=== PATIENT | male | born 1960 | race Two or more races ===

== ENCOUNTER 2016-08-07 08:56 | Inpatient (IN) | payer OTHER ==
[2016-08-07 10:09] VITALS: BMI 25.1
--- NOTE | 2016-08-07 11:54 | HP ---
COWS - Scale Resting Pulse: 0= [place] 80 or Below Sweatin= Chills/Flushing Restless Observation: 1= Difficult to Sit Still Pupil Size: 2= Moderately Dilated Bone or Joint Aches: 2= Severe Diffuse Aches Runny Nose/ Eye Tearin= Runny Nose/Eyes GI Upset > 30mins: 2= Nausea/Diarrhea Tremor Observation: 2= Slight Tremor Visible Yawning Observation: 1= 1-2x During Session Anxiety or Irritability: 2=Irritable/Anxious Goose Flesh Skin: 0=Smooth Skin COWS Score: 15 Admission ROS S - HPI Chief Complaint: Withdrawal sx. Allergies/Adverse Reactions: Allergies Allergy/AdvReac Type Severity Reaction Status Date / Time No Known Allergies Allergy Verified 08/07/16 10:29 History of Present Illness: 55 y/o man with a long hx. of heroin dependence is admitted for detox.Pt. has been in previous detox,reports being drug free for a significant length of time. Pt. ambulates with walker. Exam Limitations: No Limitations - Ebola screening Have you traveled outside of the country in the last 21 days: No Have you had contact with anyone from an Ebola affected area: No Have you been sick,other than usual withdrawal symptoms: No Do you have a fever: No - Review of Systems Constitutional: Diaphoresis EENT: reports: Nose Congestion Respiratory: reports: No Symptoms reported Cardiac: reports: No Symptoms Reported GI: reports: Nausea, Abdominal cramping : reports: No Symptoms Reported Musculoskeletal: reports: Back Pain, Joint Pain Integumentary: reports: Sweating Neuro: reports: Tingling Endocrine: reports: No Symptoms Reported Hematology: reports: No Symptoms Reported Psychiatric: reports: No Sypmtoms Reported Other Systems: Reviewed and Negative Patient History - Patient Medical History Hx Anemia: No Hx Asthma: No Hx Chronic Obstructive Pulmonary Disease (COPD): No Hx Cancer: No Hx Cardiac Disorders: No Hx Congestive Heart Failure: No Hx Hypertension: Yes (currently not on treatment) Hx Hypercholesterolemia: No Hx Pacemaker: No HX Cerebrovascular Accident: No Hx Seizures: No Hx Dementia: No Hx Diabetes: Yes (currently not on treatment) Hx Gastrointestinal Disorders: No Hx Liver Disease: No Hx Genitourinary Disorders: No Hx Sexually Transmitted Disorders: No Hx Renal Disease (ESRD): No Hx Thyroid Disease: No Hx Human Immunodeficiency Virus (HIV): Yes (SINCE 2001) Hx Hepatitis C: Yes (TREATED) Hx Depression: No Hx Suicide Attempt: No Hx Bipolar Disorder: No Hx Schizophrenia: No - Patient Surgical History Past Surgical History: Yes Hx Neurologic Surgery: No Hx Cataract Extraction: No Hx Cardiac Surgery: No Hx Lung Surgery: No Hx Breast Surgery: No Hx Breast Biopsy: No Hx Abdominal Surgery: Yes (S/P PEG) Hx Appendectomy: No Hx Cholecystectomy: No Hx Genitourinary Surgery: No Hx Section: No Hx Orthopedic Surgery: No (LT ANKLE FX REPAIR) Other Surgical History: BYPASS FOR GANGRENE OF LT LEG, S/P TRACHEOSTOMY Anesthesia Reaction: No - PPD History Previous Implant?: Yes Documented Results: Negative w/proof Implanted On Prior R Admission?: Yes Date: 09/19/15 Results: 0 mm PPD to be Administered?: No - Smoking Cessation Smoking history: Current every day smoker Have you smoked in the past 12 months: Yes Aproximately how many cigarettes per day: 10 Cigars Per Day: 0 Hx Chewing Tobacco Use: No Initiated information on smoking cessation: Yes 'Breaking Loose' booklet given: 08/07/16 - Substance & Tx. History Hx Alcohol Use: No Hx Substance Use: Yes Substance Use Type: Heroin Hx Substance Use Treatment: Yes (Detox) - Substances Abused Heroin Route: Inhalation Frequency: Daily Amount used: 4 bags Age of first use: 26 Date of Last Use: 08/06/16 Family Disease History - Family Disease History Family Disease History: Diabetes: Father, Mother (UTERINE()), Sister, Son, CA: Mother Admission Physical Exam S - Vital Signs Vital Signs: Vital Signs - 24 hr 08/07/16 10:06 Temperature 98.6 F Pulse Rate 80 Respiratory 18 Rate Blood Pressure 118/70 - Physical General Appearance: Yes: Irritable, Sweating, Anxious HEENTM: Yes: Nasal Congestion, Rhinorrhea Respiratory: Yes: Chest Non-Tender, Lungs Clear, Normal Breath Sounds Neck: Yes: Supple Breast: Yes: Breast Exam Deferred Cardiology: Yes: Regular Rhythm, Regular Rate, S1, S2 Abdominal: Yes: Normal Bowel Sounds, Non Tender, Soft Genitourinary: Yes: Within Normal Limits Back: Yes: Within Normal Limits Musculoskeletal: Yes: Other (limited ROM left hip) Extremities: Yes: Other (clubbing of the fingers) Neurological: Yes: Fully Oriented, Alert Integumentary: Yes: Diaphoresis Lymphatic: Yes: Within Normal Limits - Diagnostic (1) Opioid dependence with withdrawal Current Visit: Yes Status: Acute (2) Human immunodeficiency virus infection Current Visit: Yes Status: Chronic (3) H/O fracture of left hip Current Visit: Yes Status: Chronic BHS Breath Alcohol Content Breath Alcohol Content: 0 Urine Drug Screen - Results Drug Screen Negative: No Urine Drug Screen Results: OPI-Opiates, OXY-Oxycodone
[2016-08-07] MEDS ORDERED: guaiFENesin/D-METHORPHAN HB 10 ML UNIT-DOSE CUPS PO PRN (12:04)
[2016-08-07] MEDS ORDERED: NICOTINE POLACRILEX 2 MG GUM BUC PRN (12:04)
[2016-08-07] MEDS ORDERED: P-EPHED 60MG/TRIPROLIDI 2.5MG TABLET PO PRN (12:04)
[2016-08-07] MEDS ORDERED: ACETAMINOPHEN 325 MG TABLET (FP) PO PRN (12:04)
[2016-08-07] MEDS ORDERED: MAG HYDROX/AL HYDROX/SIMETH 30 ML UNIT-DOSE CUP PO PRN (12:04)
[2016-08-07] MEDS ORDERED: hydrOXYzine PAMOATE 50 MG CAPSULE (FP) PO PRN (12:04)
[2016-08-07] MEDS ORDERED: MAGNESIUM HYDROX 2400MG/30ML ORAL SUSPENSION 30 ML CUP PO PRN (12:04)
[2016-08-07] MEDS ORDERED: MENTHOL/PHENOL 1 EACH UD MM PRN (12:04)
[2016-08-07] MEDS ORDERED: IBUPROFEN 400 MG TABLET (FP) PO PRN (12:04)
[2016-08-07] MEDS ORDERED: MAGNESIUM CITRATE 300 ML BOTTLE PO PRN (12:04)
[2016-08-07] MEDS ORDERED: METHADONE HCL 10 MG TABLET (FOR DETOX USE ONLY) PO ONE ×2 (12:19→23:00)
[2016-08-07] MEDS: diazePAM 5 MG TABLET PO PRN ×2 (12:32→22:29)
[2016-08-07] MEDS: NICOTINE 21 MG/24 HOURS TOPICAL PATCH TD SCH (12:33)
[2016-08-07 16:58] LABS: URINE APPEARANCE CLEAR; URINE BILIRUBIN NEGATIVE (NEGATIVE); URINE BLOOD NEGATIVE (NEGATIVE); URINE COLOR LTYELLOW; URINE GLUCOSE (UA) NEGATIVE (NEGATIVE); URINE KETONE NEGATIVE (NEGATIVE); URINE LEUK ESTERASE NEGATIVE (NEGATIVE); URINE NITRITE NEGATIVE (NEGATIVE); URINE UROBILINOGEN NEGATIVE E.U./dl (0.2-1.0)
[2016-08-07 17:33] LABS: URINE PROTEIN 1+ (NEGATIVE)
[2016-08-07 17:43] LABS: URINE MUCUS RARE; URINE RBC <1 /hpf (0-3); URINE WBC 1 /hpf (3-5)
[2016-08-07] MEDS: THIAMINE HCL 100 MG TABLET (FP) PO SCH (22:29)
[2016-08-08] MEDS: diazePAM 5 MG TABLET PO PRN (06:00)
[2016-08-08] MEDS ORDERED: EFAVIRENZ 600 MG TABLET PO SCH (10:00)
[2016-08-08] MEDS ORDERED: METHADONE HCL 10 MG TABLET (FOR DETOX USE ONLY) PO ONE (10:00)
[2016-08-08] MEDS ORDERED: EMTRICITABINE 200MG/TENOFOVIR 300MG PO SCH (10:00)
[2016-08-08] MEDS: NICOTINE 21 MG/24 HOURS TOPICAL PATCH TD SCH (10:27)
[2016-08-08] MEDS: PRENATAL VITAMINS W/ FOLIC ACID TABLET (FP) PO SCH (10:27)
[2016-08-08 10:57] LABS: ALBUMIN 3.7 g/dl (3.4-5.0); BILIRUBIN,TOTAL 0.4 mg/dL (0.2-1.0); CALCIUM 9.1 mg/dL (8.5-10.1); COCKROFT - GAULT 65.36; CREATININE 1.4 mg/dL (0.7-1.3)
[2016-08-08 11:03] LABS: MCH 30.9 pg (25.7-33.7); MCHC 32.8 g/dl (32.0-35.9); MEAN CELL VOLUME 94.4 fl (80-96); PLATELET COUNT 146 K/MM3 (134-434); RDW 16.3 % (11.9-15.9); WHITE BLOOD COUNT 7.3 K/mm3 (4.0-10.0)
--- NOTE | 2016-08-08 12:20 | PN ---
[facility] CIWA - CIWA Score Nausea/Vomitin-No Nausea/No Vomiting Muscle Tremors: 4-Moderate,w/Arms Extend Anxiety: 5 Agitation: 4-Moderately Restless Paroxysmal Sweats: 1-Minimal Palms Moist Orientation: 0-Oriented Tacttile Disturbances: 3-Moderate Itch/Numb/Burn Auditory Disturbances: 0-None Visual Disturbances: 0-None Headache: 0-None Present CIWA-Ar Total Score: 17 S Progress Note (SOAP) Subjective: ANXIETY,TREMORS,AGITATIONS AND ARGUMENTATIVE/ANGRY OUTBURSTS TOWARDS STAFF. Objective: 08/08/16 12:18 Vital Signs Temperature 97.2 F L 08/08/16 10:23 Pulse Rate 87 08/08/16 10:23 Respiratory Rate 20 08/08/16 10:23 Blood Pressure 114/81 08/08/16 10:23 O2 Sat by Pulse Oximetry (%) Laboratory Last Values WBC 7.3 K/mm3 (4.0-10.0) 08/08/16 06:00 RBC 4.30 M/mm3 (4.00-5.60) 08/08/16 06:00 Hgb 13.3 GM/dL (11.7-16.9) 08/08/16 06:00 Hct 40.5 % (35.4-49) 08/08/16 06:00 MCV 94.4 fl (80-96) 08/08/16 06:00 MCHC 32.8 g/dl (32.0-35.9) 08/08/16 06:00 RDW 16.3 % (11.9-15.9) H D 08/08/16 06:00 Plt Count 146 K/MM3 (134-434) D 08/08/16 06:00 MPV 10.0 fl (7.5-11.1) 08/08/16 06:00 Sodium 139 mmol/L (136-145) 08/08/16 06:00 Potassium 4.2 mmol/L (3.5-5.1) 08/08/16 06:00 Chloride 105 mmol/L (98-107) 08/08/16 06:00 Carbon Dioxide 23 mmol/L (21-32) D 08/08/16 06:00 Anion Gap 11 (8-16) 08/08/16 06:00 BUN 34 mg/dL (7-18) H D 08/08/16 06:00 Creatinine 1.4 mg/dL (0.7-1.3) H D 08/08/16 06:00 Creat Clearance w eGFR 52.24 (>60) 08/08/16 06:00 POC Glucometer 113 UNITS (()) 08/07/16 10:57 Random Glucose 144 mg/dL (74-106) H D 08/08/16 06:00 Calcium 9.1 mg/dL (8.5-10.1) 08/08/16 06:00 Total Bilirubin 0.4 mg/dL (0.2-1.0) 08/08/16 06:00 AST 49 U/L (15-37) H D 08/08/16 06:00 ALT 33 U/L (12-78) D 08/08/16 06:00 Alkaline Phosphatase 281 U/L (45-117) H 08/08/16 06:00 Total Protein 9.0 g/dl (6.4-8.2) H 08/08/16 06:00 Albumin 3.7 g/dl (3.4-5.0) 08/08/16 06:00 Urine Color Ltyellow 08/07/16 13:00 Urine Appearance Clear 08/07/16 13:00 Urine pH 6.0 (5.0-8.0) 08/07/16 13:00 Ur Specific [place] 1.014 (1.001-1.035) 08/07/16 13:00 Urine Protein 1+ (NEGATIVE) H 08/07/16 13:00 Urine Glucose (UA) Negative (NEGATIVE) 08/07/16 13:00 Urine Ketones Negative (NEGATIVE) 08/07/16 13:00 Urine Blood Negative (NEGATIVE) 08/07/16 13:00 Urine Nitrite Negative (NEGATIVE) 08/07/16 13:00 Urine Bilirubin Negative (NEGATIVE) 08/07/16 13:00 Urine Urobilinogen Negative E.U./dl (0.2-1.0) 08/07/16 13:00 Ur Leukocyte Esterase Negative (NEGATIVE) 08/07/16 13:00 Urine RBC <1 /hpf (0-3) 08/07/16 13:00 Urine WBC 1 /hpf (3-5) 08/07/16 13:00 Ur Epithelial Cells Rare /hpf (FEW) 08/07/16 13:00 Urine Mucus Rare 08/07/16 13:00 Assessment: 08/08/16 12:18 WITHDRAWAL SX Plan: CONTINUE DETOX REDIRECTIONS TO APPROPRIATE COMMUNICATION OF NEEDS.
--- NOTE | 2016-08-08 14:30 | EKG ---
Test Reason : Blood Pressure : / mmHG Vent. Rate : 077 BPM Atrial Rate : 077 BPM P-R Int : 160 ms QRS Dur : 104 ms QT Int : 392 ms P-R-T Axes : 067 102 000 degrees QTc Int : 443 ms NORMAL SINUS RHYTHM RIGHTWARD AXIS POSSIBLE INFERIOR INFARCT , AGE UNDETERMINED ABNORMAL ECG NO PREVIOUS ECGS AVAILABLE Confirmed by JOSE AGGARWAL, HANNAH ([id number]) on 08/08/2016 2:29:57 PM Referred By: Mukesh Cole Confirmed By:HANNAH GARCIA MD
[2016-08-08] MEDS: THIAMINE HCL 100 MG TABLET (FP) PO SCH (22:38)
[2016-08-08] MEDS: diphenhydrAMINE HCL 50 MG CAPSULE PO PRN (22:38)
[2016-08-08] MEDS ORDERED: EMTRICITABINE 200MG/TENOFOVIR 300MG PO ONE (23:43)
[2016-08-08] MEDS ORDERED: EFAVIRENZ 600 MG TABLET PO ONE (23:44)
[2016-08-09] MEDS: diazePAM 5 MG TABLET PO PRN (06:14)
[2016-08-09] MEDS ORDERED: METHADONE HCL 5 MG TABLET (FOR DETOX USE ONLY) PO ONE (10:00)
[2016-08-09] MEDS: PRENATAL VITAMINS W/ FOLIC ACID TABLET (FP) PO SCH (10:50)
[2016-08-09] MEDS: NICOTINE 21 MG/24 HOURS TOPICAL PATCH TD SCH (10:51)
--- NOTE | 2016-08-09 12:18 | PN ---
BHS COWS - Scale Resting Pulse: 1= [place] 81-100 Sweatin=Flushed/Facial Moisture Restless Observation: 1= Difficult to Sit Still Pupil Size: 0= Normal to Room Light Bone or Joint Aches: 2= Severe Diffuse Aches Runny Nose/ Eye Tearin= Runny Nose/Eyes GI Upset > 30mins: 2= Nausea/Diarrhea Tremor Observation of Outstretched Hands: 2= Slight Tremor Visible Yawning Observation: 1= 1-2x During Session Anxiety or Irritability: 2=Irritable/Anxious Goose Flesh Skin: 0=Smooth Skin COWS Score: 15 BHS Progress Note (SOAP) Subjective: Sweating,anxiety,tremors,interrupted sleep,restless,muscle aches Objective: 08/09/16 12:17 Vital Signs - 8 hr 08/09/16 08/09/16 06:43 10:20 Temperature 95.8 F L 96.4 F L Pulse Rate 76 88 Respiratory 20 18 Rate Blood Pressure 147/86 132/86 Laboratory Tests 08/07/16 08/07/16 08/08/16 10:57 13:00 06:00 WBC 7.3 RBC 4.30 Hgb 13.3 Hct 40.5 MCV 94.4 MCHC 32.8 RDW 16.3 H D Plt Count 146 D MPV 10.0 Sodium Potassium Chloride Carbon Dioxide Anion Gap BUN Creatinine Creat Clearance w eGFR POC Glucometer 113 Random Glucose Calcium Total Bilirubin AST ALT Alkaline Phosphatase Total Protein Albumin Urine Color Ltyellow Urine Appearance Clear Urine pH 6.0 Ur Specific [place] 1.014 Urine Protein 1+ H Urine Glucose (UA) Negative Urine Ketones Negative Urine Blood Negative Urine Nitrite Negative Urine Bilirubin Negative Urine Urobilinogen Negative Ur Leukocyte Esterase Negative Urine RBC <1 Urine WBC 1 Ur Epithelial Cells Rare Urine Mucus Rare RPR Titer 08/08/16 08/08/16 06:00 06:00 WBC RBC Hgb Hct MCV MCHC RDW Plt Count MPV Sodium 139 Potassium 4.2 Chloride 105 Carbon Dioxide 23 D Anion Gap 11 BUN 34 H D Creatinine 1.4 H D Creat Clearance w eGFR 52.24 POC Glucometer Random Glucose 144 H D Calcium 9.1 Total Bilirubin 0.4 AST 49 H D ALT 33 D Alkaline Phosphatase 281 H Total Protein 9.0 H Albumin 3.7 Urine Color Urine Appearance Urine pH Ur Specific [place] Urine Protein Urine Glucose (UA) Urine Ketones Urine Blood Urine Nitrite Urine Bilirubin Urine Urobilinogen Ur Leukocyte Esterase Urine RBC Urine WBC Ur Epithelial Cells Urine Mucus RPR Titer Nonreactive labs noted Assessment: 08/09/16 12:18 Withdrawal sx. Plan: Continue detox
[2016-08-09] MEDS ORDERED: EFAVIRENZ 600 MG TABLET PO SCH ×2 (21:30→22:00)
[2016-08-09] MEDS ORDERED: ONDANSETRON *ODT* 4 MG TABLET SL ONE (21:32)
[2016-08-09] MEDS ORDERED: EMTRICITABINE 200MG/TENOFOVIR 300MG PO SCH (22:00)
[2016-08-09] MEDS: THIAMINE HCL 100 MG TABLET (FP) PO SCH (22:42)
[2016-08-09] MEDS: diphenhydrAMINE HCL 50 MG CAPSULE PO PRN (22:43)
[2016-08-09] MEDS: LOPERAMIDE HCL 2 MG CAPSULE PO PRN (22:43)
[2016-08-09] MEDS ORDERED: EMTRICITABINE 200MG/TENOFOVIR 300MG PO ONE (23:43)
[2016-08-09] MEDS ORDERED: EFAVIRENZ 600 MG TABLET PO ONE (23:44)
[2016-08-10] MEDS: diazePAM 5 MG TABLET PO PRN (06:09)
[2016-08-10] MEDS: LOPERAMIDE HCL 2 MG CAPSULE PO PRN (06:21)
[2016-08-10] MEDS ORDERED: METHADONE HCL 5 MG TABLET (FOR DETOX USE ONLY) PO ONE (10:00)
[2016-08-10 10:08] VITALS: BP 100/75; PULSE 98; TEMP 95.3
[2016-08-10] MEDS: NICOTINE 21 MG/24 HOURS TOPICAL PATCH TD SCH (10:37)
[2016-08-10] MEDS: PRENATAL VITAMINS W/ FOLIC ACID TABLET (FP) PO SCH (10:37)
--- NOTE | 2016-08-10 11:34 | PN ---
S Progress Note (SOAP) Subjective: ANXIETY, NAUSEA/VOMITING/DIARRHEA. Objective: 08/10/16 11:34 Vital Signs Temperature 95.3 F L 08/10/16 10:07 Pulse Rate 98 H 08/10/16 10:07 Respiratory Rate 20 08/10/16 10:07 Blood Pressure 100/75 08/10/16 10:07 O2 Sat by Pulse Oximetry (%) Assessment: 08/10/16 11:34 WITHDRAWAL SX Plan: CONTINUE DETOX.
--- NOTE | 2016-08-10 12:25 | DS ---
[facility] Detox Discharge Summary Admission Date: 08/07/16 Discharge Date: 08/10/16 - History Present History: Opioid Dependence Additional Comments: PT DECLINED TO COMPLETE DETOX. ALERT O X 3. Pertinent Past History: HTN DM HEP HIV+ - Physical Exam Results Vital Signs: Vital Signs Temperature 95.3 F L 08/10/16 10:07 Pulse Rate 98 H 08/10/16 10:07 Respiratory Rate 20 08/10/16 10:07 Blood Pressure 100/75 08/10/16 10:07 O2 Sat by Pulse Oximetry (%) Pertinent Admission Physical Exam Findings: WITHDRAWAL SX - Treatment Hospital Course: Discharged Condition Good - Medication Discharge Medications: Ambulatory Orders Efavirenz/Emtricitab/Tenofovir [Atripla -] 1 tab PO DAILY 09/30/14 - Diagnosis (1) s/p surgery for fx left ankle with bone graft and skin graft Status: Resolved (2) Hep C w/o coma, chronic Status: Chronic (3) Human immunodeficiency virus infection Status: Chronic (4) hypertension Status: Chronic (5) Diet-controlled type 2 diabetes mellitus Status: Chronic - AMA Did Patient Leave Against Medical Advice: Yes (AMA)
[2016-08-11] MEDS ORDERED: METHADONE HCL 10 MG TABLET (FOR DETOX USE ONLY) PO ONE (10:00)
[2016-08-12] MEDS ORDERED: METHADONE HCL 5 MG TABLET (FOR DETOX USE ONLY) PO ONE (06:00)
== END 2016-08-10 12:11 | disposition left against medical advice (07) | DRG 894 ==
LOC: YASAS 08:56 → Y3N 11:15
PROVIDERS: ADMIT Internal Medicine; ATTEND Internal Medicine
PROC: HZ2ZZZZ Detoxification Services for Substance Abuse Treatment (ICD-10-PCS; principal; 2016-08-10)
DX: F11.23 Opioid dependence with withdrawal (principal); F17.210 Nicotine dependence, cigarettes, uncomplicated; Z21 Asymptomatic human immunodeficiency virus [HIV] infection status; E11.9 Type 2 diabetes mellitus without complications; I10 Essential (primary) hypertension; Z87.81 Personal history of (healed) traumatic fracture
CPT/HCPCS: 36415; 80053; 81003; 81015; 85027; 86593; 93005; 93010

== ENCOUNTER 2016-10-03 10:50 | Inpatient (IN) | payer OTHER ==
[2016-10-03 11:56] VITALS: BMI 25.8
--- NOTE | 2016-10-03 14:11 | HP ---
COWS - Scale Resting Pulse: 0= [place] 80 or Below Sweatin=Flushed/Facial Moisture Restless Observation: 3= Extraneous Movement Pupil Size: 2= Moderately Dilated Bone or Joint Aches: 2= Severe Diffuse Aches Runny Nose/ Eye Tearin= Runny Nose/Eyes GI Upset > 30mins: 3= Vomiting/Diarrhea Tremor Observation: 2= Slight Tremor Visible Yawning Observation: 2= >3x During Session Anxiety or Irritability: 2=Irritable/Anxious Goose Flesh Skin: 0=Smooth Skin COWS Score: 20 Admission ROS BHS - HPI Chief Complaint: i need help to stop using heroin Allergies/Adverse Reactions: Allergies Allergy/AdvReac Type Severity Reaction Status Date / Time No Known Allergies Allergy Verified 10/03/16 12:23 History of Present Illness: this 55 years old male with heroin dependence,seeking help for detox,last detox [facility] 08/07/16 to 08/10/16 not completed several admissions in he past but relapsed old fx of left hip ambulation with walker hiv ,hepatitis c treated insomnia longest period of sobriety 8 years Exam Limitations: No Limitations - Ebola screening Have you traveled outside of the country in the last 21 days: No Have you had contact with anyone from an Ebola affected area: No Have you been sick,other than usual withdrawal symptoms: No - Review of Systems Constitutional: Chills, Loss of Appetite, Malaise, Night Sweats, Changes in sleep, Weakness, Unintentional Wgt. Loss EENT: reports: Tearing, Nose Congestion Respiratory: reports: No Symptoms reported Cardiac: reports: Palpitations GI: reports: Diarrhea, Nausea, Vomiting, Abdominal cramping : reports: No Symptoms Reported Musculoskeletal: reports: Back Pain, Muscle Pain Integumentary: reports: Dryness Neuro: reports: Headache, Tremors Endocrine: reports: No Symptoms Reported Hematology: reports: No Symptoms Reported, Other (hiv) Psychiatric: reports: Depressed (insomnia) Patient History - Patient Medical History Hx Anemia: No Hx Asthma: No Hx Chronic Obstructive Pulmonary Disease (COPD): No Hx Cancer: No Hx Cardiac Disorders: No Hx Congestive Heart Failure: No Hx Hypertension: Yes (not on meds.) Hx Hypercholesterolemia: No Hx Pacemaker: No HX Cerebrovascular Accident: No Hx Seizures: No Hx Dementia: No Hx Diabetes: Yes (Pt lost weight and no meds for last 3 yrs. no med) Hx Gastrointestinal Disorders: No Hx Liver Disease: No Hx Genitourinary Disorders: No Hx Sexually Transmitted Disorders: No Hx Renal Disease (ESRD): No Hx Thyroid Disease: No Hx Human Immunodeficiency Virus (HIV): Yes (SINCE 2001) Hx Hepatitis C: Yes (TREATED) Hx Depression: No Hx Suicide Attempt: No Hx Bipolar Disorder: No Hx Schizophrenia: No Other Medical History: no suicidl,no homicidal - Patient Surgical History Past Surgical History: Yes Hx Neurologic Surgery: No Hx Cataract Extraction: No Hx Cardiac Surgery: No Hx Lung Surgery: No Hx Breast Surgery: No Hx Breast Biopsy: No Hx Abdominal Surgery: Yes (S/P PEG) Hx Appendectomy: No Hx Cholecystectomy: No Hx Genitourinary Surgery: No Hx Section: No Hx Orthopedic Surgery: No (LT ANKLE FX REPAIR) Other Surgical History: BYPASS FOR GANGRENE OF LT LEG, S/P TRACHEOSTOMY Anesthesia Reaction: No - PPD History Previous Implant?: Yes Documented Results: Negative w/o proof Implanted On Prior [facility] Admission?: Yes Date: 09/19/15 Results: 0 mm PPD to be Administered?: Yes - Smoking Cessation Smoking history: Current every day smoker Have you smoked in the past 12 months: Yes Aproximately how many cigarettes per day: 10 Cigars Per Day: 0 Hx Chewing Tobacco Use: No Initiated information on smoking cessation: Yes 'Breaking Loose' booklet given: 10/03/16 - Substance & Tx. History Hx Alcohol Use: No Hx Substance Use: Yes Substance Use Type: Heroin Hx Substance Use Treatment: Yes ([facility] 08/07/16 to 08/10/16) - Substances Abused Heroin Route: Injection Frequency: Daily Amount used: 7 bags Age of first use: 26 Date of Last Use: 10/02/16 Family Disease History - Family Disease History Family Disease History: Diabetes: Father, Mother (UTERINE()), Sister, Son, CA: Mother Admission Physical Exam [facility] - Vital Signs Vital Signs: Vital Signs - 24 hr 10/03/16 11:53 Temperature 96.1 F L Pulse Rate 77 Respiratory 18 Rate Blood Pressure 130/86 - Physical General Appearance: Yes: Moderate Distress, Tremorous, Irritable, Sweating, Anxious HEENTM: Yes: Hearing grossly Normal, Normal ENT Inspection, [place], Pharynx Normal , Other (s/p tracheostomy) Respiratory: Yes: Lungs Clear, Normal Breath Sounds, No Respiratory Distress Neck: Yes: Within Normal Limits Breast: Yes: Within Normal Limits Cardiology: Yes: Within Normal Limits, Regular Rhythm, Regular Rate, S1, S2 Abdominal: Yes: Within Normal Limits, Normal Bowel Sounds, Non Tender, Flat, Soft, Surgical Scar (prvuos peg) Genitourinary: Yes: Within Normal Limits Back: Yes: Normal Inspection, Muscle Spasm Musculoskeletal: Yes: Back pain Extremities: Yes: Tremors (old fx of left hip with deformity) Neurological: Yes: 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 NML intact (weakness of left lower extremity old fx of left hip), Fully Oriented, Alert Integumentary: Yes: Dry Lymphatic: Yes: Within Normal Limits - Diagnostic (1) DM Diabetes mellitus type 2 Current Visit: Yes Status: Chronic (2) Nicotine dependence Current Visit: Yes Status: Acute Qualifiers: Nicotine product type: cigarettes Substance use status: uncomplicated Qualified Code(s): F17.210 - Nicotine dependence, cigarettes, uncomplicated (3) Opioid dependence with withdrawal Current Visit: No Status: Acute (4) H/O fracture of left hip Current Visit: Yes Status: Chronic (5) Human immunodeficiency virus infection Current Visit: Yes Status: Chronic (6) hypertension Current Visit: Yes Status: Chronic (7) Walker as ambulation aid Current Visit: Yes Status: Acute Cleared for Admission [facility] - Detox or Rehab [facility] Level of Care: Medically Managed Detox Regimen/Protocol: Methadone [facility] Breath Alcohol Content Breath Alcohol Content: 0 Urine Drug Screen - Results Drug Screen Negative: No Urine Drug Screen Results: THC-Marijuana, VERONICA-Cocaine, OPI-Opiates
[2016-10-03] MEDS ORDERED: MAG HYDROX/AL HYDROX/SIMETH 30 ML UNIT-DOSE CUP PO PRN (14:40)
[2016-10-03] MEDS ORDERED: diphenhydrAMINE HCL 50 MG CAPSULE PO PRN (14:40)
[2016-10-03] MEDS ORDERED: MENTHOL/PHENOL 1 EACH UD MM PRN (14:40)
[2016-10-03] MEDS ORDERED: ACETAMINOPHEN 325 MG TABLET (FP) PO PRN (14:40)
[2016-10-03] MEDS ORDERED: MAGNESIUM CITRATE 300 ML BOTTLE PO PRN (14:40)
[2016-10-03] MEDS ORDERED: guaiFENesin/D-METHORPHAN HB 10 ML UNIT-DOSE CUPS PO PRN (14:40)
[2016-10-03] MEDS ORDERED: hydrOXYzine PAMOATE 25 MG CAPSULE (FP) PO PRN (14:40)
[2016-10-03] MEDS ORDERED: IBUPROFEN 400 MG TABLET (FP) PO PRN (14:40)
[2016-10-03] MEDS ORDERED: LOPERAMIDE HCL 2 MG CAPSULE PO PRN (14:40)
[2016-10-03] MEDS ORDERED: P-EPHED 60MG/TRIPROLIDI 2.5MG TABLET PO PRN (14:40)
[2016-10-03] MEDS ORDERED: MAGNESIUM HYDROX 2400MG/30ML ORAL SUSPENSION 30 ML CUP PO PRN (14:40)
[2016-10-03] MEDS ORDERED: METHADONE HCL 10 MG TABLET (FOR DETOX USE ONLY) PO ONE ×2 (15:01→23:00)
[2016-10-03] MEDS: diazePAM 5 MG TABLET PO PRN (15:41)
--- NOTE | 2016-10-03 16:35 | CONSULT ---
[facility] Psychiatric Consult - Data Date of interview: 10/03/16 Admission source: [facility] Identifying data: Another admission to [facility] for this 55 y/o AA male seeking detox treatment on for heroin dependence.Patient is single,a father of four,domiciled,disabled and supported on [facility] benefits. Substance Abuse History: - Smoking Cessation. Smoking history: Current every day smoker. Have you smoked in the past 12 months: Yes. Aproximately how many cigarettes per day: 10. Cigars Per Day: 0. Hx Chewing Tobacco Use: No. Initiated information on smoking cessation: Yes. 'Breaking Loose' booklet given : 10/03/16. - Substance & Tx. History. Hx Alcohol Use: No. Hx Substance Use: Yes. Substance Use Type: Heroin. Hx Substance Use Treatment: Yes ([facility] 08/10/16). - Substances Abused. Heroin. Route: Injection. Frequency : Daily. Amount used: 7 bags. Age of first use: 26. Date of Last Use: . Confirmed by patient. Medical History: HIV infection since 2001,type II diabetes mellitus,GERD and hepatitis C.History of traumatic injury (left hip). Psychiatric History: Patient denies. Physical/Sexual Abuse/Trauma History: Patient denies. Mental Status Exam - Mental Status Exam Alert and Oriented to: Time, Place, Person Cognitive Function: Good Patient Appearance: Well Groomed Mood: Hopeful, Euthymic Affect: Appropriate, Normal Range Patient Behavior: Cooperative (friendly) Speech Pattern: Clear, Appropriate Voice Loudness: Normal Thought Process: Goal Oriented Thought Disorder: Not Present Hallucinations: Denies Suicidal Ideation: Denies Homicidal Ideation: Denies Insight/Judgement: Poor Sleep: Poorly, Difficulty falling asleep (requested ambien) Appetite: Good Gait/Station: Other Additional Comments: ambulates with a walker Psychiatric Findings - Problem List ([place] 1, 2,3) (1) Opioid dependence Current Visit: Yes Status: Active (2) Nicotine dependence Current Visit: Yes Status: Acute Qualifiers: Nicotine product type: cigarettes Substance use status: uncomplicated Qualified Code(s): F17.210 - Nicotine dependence, cigarettes, uncomplicated (3) Drug-induced mood disorder Current Visit: Yes Status: Acute (4) DM Diabetes mellitus type 2 Current Visit: Yes Status: Chronic (5) H/O fracture of left hip Current Visit: Yes Status: Chronic (6) Hep C w/o coma, chronic Current Visit: Yes Status: Chronic (7) Human immunodeficiency virus infection Current Visit: Yes Status: Chronic (8) hypertension Current Visit: Yes Status: Chronic (9) Insomnia Current Visit: Yes Status: Acute - Initial Treatment Plan Initial Treatment Plan: Psychoeducation.Detoxification.Ambien 10 mg po hs prn.Patient is made aware of parasomnias.He agrees with this plan.Observation.
[2016-10-03 17:45] LABS: URINE APPEARANCE CLEAR; URINE BILIRUBIN NEGATIVE (NEGATIVE); URINE BLOOD NEGATIVE (NEGATIVE); URINE COLOR YELLOW; URINE GLUCOSE (UA) NEGATIVE (NEGATIVE); URINE KETONE NEGATIVE (NEGATIVE); URINE LEUK ESTERASE NEGATIVE (NEGATIVE); URINE NITRITE NEGATIVE (NEGATIVE); URINE PROTEIN 1+ (NEGATIVE); URINE UROBILINOGEN NEGATIVE E.U./dl (0.2-1.0)
[2016-10-03 17:54] LABS: URINE HYALINE CAST 4 /lpf; URINE MUCUS MANY; URINE RBC 2 /hpf (0-3); URINE WBC 5 /hpf (3-5)
[2016-10-03] MEDS ORDERED: ZOLPIDEM TARTRATE 10 MG TABLET (PARK CARE ONLY) PO PRN (22:00)
[2016-10-03] MEDS ORDERED: THIAMINE HCL 100 MG TABLET (FP) PO SCH (22:00)
[2016-10-04] MEDS ORDERED: PATIENT'S OWN MEDICATION (NON-FORMULARY) (Efavirenz/Emtricitab/Tenofovir 1 TAB) PO SCH ×4 (03:15→18:00)
[2016-10-04] MEDS: diazePAM 5 MG TABLET PO PRN (05:45)
[2016-10-04 09:52] LABS: MCHC 32.2 g/dl (32.0-35.9); MEAN CELL VOLUME 96.4 fl (80-96); MEAN PLT VOLUME 9.6 fl (7.5-11.1); PLATELET COUNT 171 K/MM3 (134-434); RDW 17.2 % (11.9-15.9); WHITE BLOOD COUNT 6.2 K/mm3 (4.0-10.0)
[2016-10-04] MEDS ORDERED: PRENATAL VITAMINS W/ FOLIC ACID TABLET (FP) PO SCH (10:00)
[2016-10-04] MEDS ORDERED: NICOTINE 21 MG/24 HOURS TOPICAL PATCH TD SCH (10:00)
[2016-10-04] MEDS ORDERED: METHADONE HCL 10 MG TABLET (FOR DETOX USE ONLY) PO ONE (10:00)
[2016-10-04] MEDS ORDERED: COLLAGENASE CLOSTRIDIUM HIST. 30 GRAMS TUBE TP SCH (11:00)
--- NOTE | 2016-10-04 12:11 | PN ---
BHS COWS - Scale Resting Pulse: 0= [place] 80 or Below Sweatin= Chills/Flushing Restless Observation: 3= Extraneous Movement Pupil Size: 2= Moderately Dilated Bone or Joint Aches: 4=Acute Joint/Muscle Pain Runny Nose/ Eye Tearin= Nasal Congestion GI Upset > 30mins: 1= Stomach Cramp Tremor Observation of Outstretched Hands: 2= Slight Tremor Visible Yawning Observation: 1= 1-2x During Session Anxiety or Irritability: 2=Irritable/Anxious Goose Flesh Skin: 0=Smooth Skin COWS Score: 17 BHS Progress Note (SOAP) Subjective: ANXIETY,IRRITABILITY,SWEATS, LEFT LEG PAIN- PT HAS CHRONIC LEG ULCER ON LEFT LEG WITH DAILY DRESSING WITH SANTYL OINTMENT. PT STATES MANY MONTHS AGO HAD A TINY SKIN BREAK WHICH SCABBED AND HE TOOK IT OUT IT LATER PROGRESSED TO A DEEP ULCER. Objective: 10/04/16 12:09 Vital Signs Temperature 96.1 F L 10/04/16 09:06 Pulse Rate 71 10/04/16 09:06 Respiratory Rate 18 10/04/16 09:06 Blood Pressure 122/66 10/04/16 09:06 O2 Sat by Pulse Oximetry (%) Laboratory Last Values WBC 6.2 K/mm3 (4.0-10.0) 10/04/16 06:00 RBC 4.32 M/mm3 (4.00-5.60) 10/04/16 06:00 Hgb 13.4 GM/dL (11.7-16.9) 10/04/16 06:00 Hct 41.7 % (35.4-49) 10/04/16 06:00 MCV 96.4 fl (80-96) H 10/04/16 06:00 MCHC 32.2 g/dl (32.0-35.9) 10/04/16 06:00 RDW 17.2 % (11.9-15.9) H 10/04/16 06:00 Plt Count 171 K/MM3 (134-434) 10/04/16 06:00 MPV 9.6 fl (7.5-11.1) 10/04/16 06:00 Urine Color Yellow 10/03/16 14:00 Urine Appearance Clear 10/03/16 14:00 Urine pH 6.0 (5.0-8.0) 10/03/16 14:00 Ur Specific [place] 1.025 (1.005-1.025) 10/03/16 14:00 Urine Protein 1+ (NEGATIVE) H 10/03/16 14:00 Urine Glucose (UA) Negative (NEGATIVE) 10/03/16 14:00 Urine Ketones Negative (NEGATIVE) 10/03/16 14:00 Urine Blood Negative (NEGATIVE) 10/03/16 14:00 Urine Nitrite Negative (NEGATIVE) 10/03/16 14:00 Urine Bilirubin Negative (NEGATIVE) 10/03/16 14:00 Urine Urobilinogen Negative E.U./dl (0.2-1.0) 10/03/16 14:00 Ur Leukocyte Esterase Negative (NEGATIVE) 10/03/16 14:00 Urine RBC 2 /hpf (0-3) 10/03/16 14:00 Urine WBC 5 /hpf (3-5) 10/03/16 14:00 Ur Epithelial Cells Rare /hpf (FEW) 10/03/16 14:00 Hyaline Casts 4 /lpf 10/03/16 14:00 Urine Mucus Many 10/03/16 14:00 LEFT LEG:DEEP ULCER, BROWN WITHE DARK EDGES. NO EXUDATE. Assessment: 10/04/16 12:10 WITHDRAWAL SX ULCER LEFT LOWER LEG Plan: CONTINUE DETOX WOUND CARE DIRECTED INSTRUCTED ON THE NEED TO FOLLOW UP WITH HIS PMD FOR TOTAL DIABETIC/WOUND CARE WELL HIS OTHER COMORBID CONDITIONS.
[2016-10-04 12:37] LABS: COCKROFT - GAULT 78.43; CREATININE 1.2 mg/dL (0.7-1.3); GLUCOSE,RANDOM 109 mg/dL (74-106)
[2016-10-04 12:38] LABS: ALBUMIN 3.5 g/dl (3.4-5.0); ANION GAP 11 (8-16); CALCIUM 8.8 mg/dL (8.5-10.1); CO2 19 mmol/L (21-32); TOT PROT 8.5 g/dl (6.4-8.2)
[2016-10-04 12:39] LABS: ALK PHOS 285 U/L (45-117); BILIRUBIN,TOTAL 0.4 mg/dL (0.2-1.0); SGOT/AST 30 U/L (15-37); SGPT/ALT 20 U/L (12-78)
--- NOTE | 2016-10-04 12:42 | EKG ---
Test Reason : Blood Pressure : / mmHG Vent. Rate : 063 BPM Atrial Rate : 063 BPM P-R Int : 150 ms QRS Dur : 120 ms QT Int : 434 ms P-R-T Axes : 063 091 006 degrees QTc Int : 444 ms NORMAL SINUS RHYTHM RIGHTWARD AXIS NON-SPECIFIC INTRA-VENTRICULAR CONDUCTION DELAY BORDERLINE ECG WHEN COMPARED WITH ECG OF 07-AUG-2016 11:41, NO SIGNIFICANT CHANGE WAS FOUND Confirmed by LALI AGGARWAL, MARY ELLEN ([id number]) on 10/04/2016 12:41:38 PM Referred By: Mukesh Cole Confirmed By:MARY ELLEN ESCALERA MD
[2016-10-04 17:46] VITALS: BP 106/67; PULSE 69; TEMP 97.2
--- NOTE | 2016-10-04 21:30 | DS ---
[facility] Detox Discharge Summary Admission Date: 10/03/16 Discharge Date: 10/04/16 - History Present History: Opioid Dependence Additional Comments: patient insists to leave the unit, refuses to wait face to face with the provider refuses e prescription - Physical Exam Results Vital Signs: Vital Signs Temperature 97.2 F L 10/04/16 17:45 Pulse Rate 69 10/04/16 17:45 Respiratory Rate 18 10/04/16 17:45 Blood Pressure 106/67 10/04/16 17:45 O2 Sat by Pulse Oximetry (%) Pertinent Admission Physical Exam Findings: withdrawal sx Laboratory Last Values WBC 6.2 K/mm3 (4.0-10.0) 10/04/16 06:00 RBC 4.32 M/mm3 (4.00-5.60) 10/04/16 06:00 Hgb 13.4 GM/dL (11.7-16.9) 10/04/16 06:00 Hct 41.7 % (35.4-49) 10/04/16 06:00 MCV 96.4 fl (80-96) H 10/04/16 06:00 MCHC 32.2 g/dl (32.0-35.9) 10/04/16 06:00 RDW 17.2 % (11.9-15.9) H 10/04/16 06:00 Plt Count 171 K/MM3 (134-434) 10/04/16 06:00 MPV 9.6 fl (7.5-11.1) 10/04/16 06:00 Sodium 140 mmol/L (136-145) 10/04/16 06:00 Potassium 4.2 mmol/L (3.5-5.1) 10/04/16 06:00 Chloride 110 mmol/L (98-107) H 10/04/16 06:00 Carbon Dioxide 19 mmol/L (21-32) L 10/04/16 06:00 Anion Gap 11 (8-16) 10/04/16 06:00 BUN 30 mg/dL (7-18) H 10/04/16 06:00 Creatinine 1.2 mg/dL (0.7-1.3) 10/04/16 06:00 Creat Clearance w eGFR > 60 (>60) 10/04/16 06:00 Random Glucose 109 mg/dL (74-106) H D 10/04/16 06:00 Calcium 8.8 mg/dL (8.5-10.1) 10/04/16 06:00 Total Bilirubin 0.4 mg/dL (0.2-1.0) 10/04/16 06:00 AST 30 U/L (15-37) D 10/04/16 06:00 ALT 20 U/L (12-78) D 10/04/16 06:00 Alkaline Phosphatase 285 U/L (45-117) H 10/04/16 06:00 Total Protein 8.5 g/dl (6.4-8.2) H 10/04/16 06:00 Albumin 3.5 g/dl (3.4-5.0) 10/04/16 06:00 Urine Color Yellow 10/03/16 14:00 Urine Appearance Clear 10/03/16 14:00 Urine pH 6.0 (5.0-8.0) 10/03/16 14:00 Ur Specific [place] 1.025 (1.005-1.025) 10/03/16 14:00 Urine Protein 1+ (NEGATIVE) H 10/03/16 14:00 Urine Glucose (UA) Negative (NEGATIVE) 10/03/16 14:00 Urine Ketones Negative (NEGATIVE) 10/03/16 14:00 Urine Blood Negative (NEGATIVE) 10/03/16 14:00 Urine Nitrite Negative (NEGATIVE) 10/03/16 14:00 Urine Bilirubin Negative (NEGATIVE) 10/03/16 14:00 Urine Urobilinogen Negative E.U./dl (0.2-1.0) 10/03/16 14:00 Ur Leukocyte Esterase Negative (NEGATIVE) 10/03/16 14:00 Urine RBC 2 /hpf (0-3) 10/03/16 14:00 Urine WBC 5 /hpf (3-5) 10/03/16 14:00 Ur Epithelial Cells Rare /hpf (FEW) 10/03/16 14:00 Hyaline Casts 4 /lpf 10/03/16 14:00 Urine Mucus Many 10/03/16 14:00 RPR Titer Nonreactive (NONREACTIVE) 10/04/16 06:00 lab noted - Treatment Hospital Course: Detox Protocol Followed, Responded well - Medication Discharge Medications: Ambulatory Orders Efavirenz/Emtricitab/Tenofovir [Atripla -] 1 tab PO DAILY 09/30/14 Collagenase Clostridium Hist. [Santyl] 1 applic TP DAILY 10/04/16 Quetiapine Fumarate [Seroquel -] 400 mg PO HS #30 tab 10/04/16 - Diagnosis (1) hypertension Status: Chronic (2) Opioid dependence with withdrawal Status: Acute (3) DM Diabetes mellitus type 2 Status: Chronic (4) Human immunodeficiency virus infection Status: Chronic - AMA Did Patient Leave Against Medical Advice: Yes
[2016-10-04] MEDS ORDERED: QUEtiapine FUMARATE 400 MG TABLET PO SCH (22:00)
[2016-10-05] MEDS ORDERED: METHADONE HCL 5 MG TABLET (FOR DETOX USE ONLY) PO ONE (10:00)
[2016-10-06] MEDS ORDERED: METHADONE HCL 5 MG TABLET (FOR DETOX USE ONLY) PO ONE (10:00)
[2016-10-07] MEDS ORDERED: METHADONE HCL 10 MG TABLET (FOR DETOX USE ONLY) PO ONE (10:00)
[2016-10-08] MEDS ORDERED: METHADONE HCL 5 MG TABLET (FOR DETOX USE ONLY) PO ONE (06:00)
== END 2016-10-04 19:16 | disposition left against medical advice (07) | DRG 894 ==
LOC: YASAS 10:50 → Y3N 13:35
PROVIDERS: ADMIT Internal Medicine; ATTEND Internal Medicine
PROC: HZ2ZZZZ Detoxification Services for Substance Abuse Treatment (ICD-10-PCS; principal; 2016-10-03)
DX: F11.23 Opioid dependence with withdrawal (principal); F17.210 Nicotine dependence, cigarettes, uncomplicated; F19.24 Other psychoactive substance dependence with psychoactive substance-induced mood disorder; Z21 Asymptomatic human immunodeficiency virus [HIV] infection status; K21.9 Gastro-esophageal reflux disease without esophagitis; B18.2 Chronic viral hepatitis C; G47.00 Insomnia, unspecified; R26.2 Difficulty in walking, not elsewhere classified; Z99.89 Dependence on other enabling machines and devices; Z87.81 Personal history of (healed) traumatic fracture; Z86.39 Personal history of other endocrine, nutritional and metabolic disease; Z86.79 Personal history of other diseases of the circulatory system
CPT/HCPCS: 36415; 80053; 81003; 81015; 85027; 86593; 93005; 93010